=== PATIENT | female | born 1985 | race American Indian/Alaskan Native ===

== ENCOUNTER 2017-08-21 22:21 | Emergency (ER) | payer SELFPAY ==
[2017-08-21 23:03] VITALS: BP 157/85
== END 2017-08-22 02:00 | disposition left against medical advice (07) ==
LOC: ED 22:21
DX: R21 Rash and other nonspecific skin eruption (principal); Z53.21 Procedure and treatment not carried out due to patient leaving prior to being seen by health care provider

== ENCOUNTER 2018-02-04 13:36 | Emergency (ER) | payer SELFPAY ==
[2018-02-04 14:07] VITALS: BP 139/84
[2018-02-04] MEDS ORDERED: CLARITIN ONE (15:24)
== END 2018-02-04 18:01 | disposition left against medical advice (07) ==
LOC: ED 13:36
DX: M25.562 Pain in left knee (principal); Z53.21 Procedure and treatment not carried out due to patient leaving prior to being seen by health care provider